=== PATIENT | female | born 1935 | race African-American/Black ===

== ENCOUNTER 2017-02-13 08:11 | Emergency (ER) | payer MEDICARE ==
[~2017-02-13] VITALS: Ht 154.9 cm; Wt 52.2 kg
[~2017-02-13 08:11] MED LIST: HYDR-4663 PO; LEVO500T21 PO; MEGE40TA15 PO; Pantoprazole Sodium Sesquihydr PO; SACC250C PO
[2017-02-13] MEDS ORDERED: SODIUM CHLORIDE 0.9% 1,000 ML IV ONE (08:51)
[2017-02-13] MEDS ORDERED: PROMETHAZINE HCL 25 MG/ML 1ML IV PRN (09:00)
[2017-02-13] MEDS ORDERED: NALBUPHINE HCL 10 MG/1ml INJECTION IV ONE (09:00)
[2017-02-13 10:06] LABS: Urine RBC None Seen /hpf (0 - 4)
[2017-02-13 10:22] LABS: Urine Bilirubin Negative (Negative); Urine Blood Negative /uL (Negative); Urine Color Colorless (Yellow); Urine Glucose Normal (Normal); Urine Ketone Negative (Negative); Urine Nitrite Negative (Negative); Urine Urobilinogen Normal (Negative)
[2017-02-13 11:36] LABS: Basophils # (auto) 0 uL; Basophils % (auto) 0.3 % (0.0-2.0); Eosinophils # (auto) 0.1 uL; Eosinophils % (auto) 1.4 % (0.0-7.0); Hematocrit 38.4 % (36.0-46.0); Hemoglobin 12.8 g/dL (12.2-16.2); Lymphocytes # (auto) 2.1 uL; Lymphocytes % (auto) 21.6 % (10.0-50.0); Mean Corpuscular Hgb Conc. 33.4 g/dL (32.0-36.0); Mean Corpuscular Volume 86.9 fL (80.0-100.0); Mean Platelet Volume 7.9 fL (7.4-10.4); Monocytes # (auto) 0.7 uL; Monocytes % (auto) 7.2 % (0.0-12.0); Neutrophils # (auto) 6.7 uL; Neutrophils % (auto) 69.5 % (37.0-80.0); Platelet Count (auto) 172 10^3/uL (140-450); SUSPECT VIEW TRANSMISSION; White Blood Cell 9.7 10^3/uL (4.4-10.8)
[2017-02-13] MEDS ORDERED: KETOROLAC TROMETH 30 MG/ML 1ML VIAL IV ONE (14:00)
[2017-02-13] MEDS ORDERED: FLEET MINERAL OIL ENEMA 133 ML PR ONE (14:00)
[2017-02-13] MEDS ORDERED: METOCLOPRAMIDE HCL 5MG/ml INJ 2ml VIAL IV ONE (14:00)
[2017-02-13] MEDS ORDERED: DOCUSATE SOD 100 MG CAP PO ONE (14:30)
[2017-02-13 17:07] LABS: Albumin 3.3 g/dL (3.4-5.0); BUN/Creatinine Ratio 13.3; Calcium 8.8 mg/dL (8.5-10.1); Potassium 3.7 mmol/L (3.5-5.1)
[2017-02-13 17:25] LABS: Bilirubin, Total 0.4 mg/dL (0.2-1.0); Total Protein 7.5 g/dL (6.4-8.2)
[2017-02-13 18:05] LABS: B-Type Natriuretic Peptide 191.17 pg/mL (0-100); Temperature: 22.9 C (20.0-25.0)
[2017-02-13 18:08] VITALS: BP 148/88
== END 2017-02-13 19:45 | disposition home or self-care (01) ==
LOC: ER 08:11 → EDBD 08:11 → ER 19:45
DX: M47.816 Spondylosis without myelopathy or radiculopathy, lumbar region (principal); K59.01 Slow transit constipation; R10.9 Unspecified abdominal pain; I11.0 Hypertensive heart disease with heart failure; I50.9 Heart failure, unspecified; J44.9 Chronic obstructive pulmonary disease, unspecified; Z87.442 Personal history of urinary calculi; G89.29 Other chronic pain; M54.9 Dorsalgia, unspecified; Z90.49 Acquired absence of other specified parts of digestive tract; Z90.710 Acquired absence of both cervix and uterus
CPT/HCPCS: 36415; 71020; 74176; 80053; 81001; 83690; 83735; 83880; 84443; 84484; 85025; 93005; 94761; 96361; 96374; 96375; 99285; J1885; J2300; J2550; J7030

== ENCOUNTER 2017-10-27 16:51 | Emergency (ER) | payer MEDICARE ==
[~2017-10-27] VITALS: Ht 160 cm; Wt 49.9 kg
[~2017-10-27 16:51] MED LIST changes: +AZIT250T8 PO; +CAR350T; +CLO01T PO; -HYDR-4663 PO; +HYDR-4683 PO; -LEVO500T21 PO; -Pantoprazole Sodium Sesquihydr PO; -SACC250C PO
[2017-10-27 17:09] VITALS: BP 164/93
[2017-10-27 19:07] LABS: Mean Corpuscular Hemoglobin 26.6 pg (28.0-32.0); Mean Corpuscular Hgb Conc. 32.1 g/dL (32.0-36.0); Platelet Count (auto) 274 10^3/uL (140-450); Red Blood Cells 4.12 10^6/uL (4.0-5.20)
[2017-10-27 19:09] LABS: Hematocrit 34.2 % (36.0-46.0); Mean Corpuscular Volume 82.8 fL (80.0-100.0); Red Cell Distribution Width 19.6 % (11.8-14.3); White Blood Cell 10.3 10^3/uL (4.4-10.8)
[2017-10-27 19:24] LABS: Albumin 3.7 g/dL (3.4-5.0); BUN/Creatinine Ratio 18.1; Bilirubin, Total 0.3 mg/dL (0.2-1.0); Calcium 9.7 mg/dL (8.5-10.1); Potassium 4.8 mmol/L (3.5-5.1); Total Protein 7.8 g/dL (6.4-8.2)
[2017-10-27 19:31] LABS: Band Neutrophils % (manual) 0
[2017-10-27 19:32] LABS: Basophils % (manual) 0 (0.0-2.0); Blast Cells 0; Metamyelocytes % 0; Myelocytes % 0; Promyelocytes % 0; Reactive Lymphocytes 0
[2017-10-27 19:51] LABS: Eosinophils % (manual) 2 (0-7); Lymphocytes % (manual) 35 (10.0-50.0); Monocytes % (manual) 7 (0-12)
== END 2017-10-27 23:20 | disposition left against medical advice (07) ==
LOC: ER 16:51 → EDBD 16:51 → ER 23:20
DX: R10.9 Unspecified abdominal pain (principal); R11.2 Nausea with vomiting, unspecified; Z53.21 Procedure and treatment not carried out due to patient leaving prior to being seen by health care provider
CPT/HCPCS: 36415; 80053; 85007; 85027